=== PATIENT | male | born 1950 | race Caucasian/White ===

== ENCOUNTER 2016-06-01 19:23 | Emergency (ER) | payer MEDICARE, OTHER ==
[~2016-06-01] VITALS: Ht 175.3 cm; Wt 106.5 kg
[~2016-06-01 19:23] MED LIST: ASPI81TA82 PO; EFFE75CA PO; GABA400C5 PO; HYDR-3533 PO; IBUP-238 PO; LOSA50TA PO; OMEP20CA5 PO
[2016-06-01 19:25] VITALS: BP 145/86; PULSE 96; RESP 20; TEMP 98.6; O2SAT 98
--- NOTE | 2016-06-01 19:33 | PD ---
HPI Chief Complaint: swallowed piece of plastic Time Seen by Provider: 19:29 Travel History International Travel<30 days: No Contact w/Intl Traveler<30days: No Traveled to known affect area: No History of Present Illness HPI The patient is a 66-year-old male that at approximately 7 PM tonight accidentally swallowed what he thinks is a hard piece of plastic, like a bread closing device, accidentally. He was eating a sandwich at the time. Initially he had difficulty breathing but he has no trouble breathing now and he feels that he has this piece of plastic in his upper esophagus. He called the ambulance and they brought him here. PFSH Past Medical History Arthritis: No Asthma: No Autoimmune Disease: No Anxiety: Yes Depression: No Heart Rhythm Problems: No Cancer: Yes (SKIN CANCER REMOVED ) Cardiovascular Problems: Yes High Cholesterol: No Chemotherapy: No Chest Pain: No Congestive Heart Failure: No COPD: No Cerebrovascular Accident: No Diabetes: No Diminished Hearing: No Endocrine: No Gastrointestinal Disorders: No GERD: No Genitourinary: No Headaches: Yes Hiatal Hernia: No Hypertension: Yes Immune Disorder: No Implanted Vascular Access Dvce: Yes Kidney Stones: No Musculoskeletal: Yes Neurologic: Yes Psychiatric: No Reproductive: No Respiratory: No Integumentary: Yes Migraines: Yes Radiation Therapy: No Renal Failure: No Seizures: No Sickle Cell Disease: No Sleep Apnea: No Thyroid Disease: No Ulcer: No Past Surgical History Abdominal Surgery: Yes (APPENDECTOMY) AICD: No Appendectomy: Yes Arteriovenous Shunt: No Body Medical Devices: PINS IN NECK Cardiac Surgery: No Ear Surgery: No Endocrine Surgery: No Eye Surgery: Yes (LASIK SURGERY) Genitourinary Surgery: No Gynecologic Surgery: No Insulin Pump: No Joint Replacement: No Neurologic Surgery: Yes ( CERVICAL FUSION SURGERY) Oral Surgery: No Pacemaker: No Thoracic Surgery: No Other Surgery: Yes Social History Alcohol Use: Yes (SOCIALLY) Tobacco Use: No Substance Use: No Allergies-Medications (Allergen,Severity, Reaction): Coded Allergies: No Known Allergies (Verified , 06/01/16) Reported Meds & Prescriptions Reported Meds & Active Scripts Active Reported Effexor (Venlafaxine HCl) 75 Mg Tab 75 Mg PO Q12H Omeprazole 20 Mg Cap 20 Mg PO DAILY Losartan (Losartan Potassium) 50 Mg Tab 50 Mg PO DAILY Gabapentin 600 Mg Tab 600 Mg PO TID Aspirin 81 Mg Tabdr 81 Mg PO DAILY Review of Systems Except as stated in HPI: all other systems reviewed are Neg Physical Exam Narrative GENERAL: Well-nourished, alert and oriented, obese patient in minimal apparent distress with his esophageal discomfort. SKIN: Warm and dry. HEAD: Normocephalic. EYES: No scleral icterus. No injection or drainage. NECK: Supple, trachea midline. No JVD or lymphadenopathy. CARDIOVASCULAR: Regular rate and rhythm without murmurs, gallops, or rubs. RESPIRATORY: Breath sounds equal bilaterally. No accessory muscle use. GASTROINTESTINAL: Abdomen soft, non-tender, nondistended. The patient can swallow water without any problem. MUSCULOSKELETAL: No cyanosis, or edema. BACK: Nontender without obvious deformity. No CVA tenderness. Data Data Last Documented VS Vital Signs Date Time Temp Pulse Resp B/P Pulse Ox O2 Delivery O2 Flow Rate FiO2 06/01/16 22:04 78 18 120/78 97 06/01/16 19:39 Nasal Cannula 2 06/01/16 19:[address] Soft Tiss Neck W/O Iv Cont (06/01/16 20:45) MDM Medical Decision Making Medical Screen Exam Complete: Yes Emergency Medical Condition: Yes Medical Record Reviewed: Yes Interpretation(s) The CT scan of the neck/upper esophagus reveals no foreign body. Differential Diagnosis Foreign body esophagus, irritation of esophagus, foreign body tracheahighly unlikely Narrative Course After the CT scan showed no foreign body, I gave the patient bread water and he ate this extremely well. The patient appears not to have any foreign body in the esophagus, only an irritation of the esophagus. Diagnosis Primary Impression: Esophageal abrasion Additional Instructions: As we discussed, this irritation of the esophagus should go away in several days , if you have any problems follow up with gastroenterology. Med/Other Pt SpecificInfo: No Change to Meds Disposition: 01 DISCHARGE HOME Condition: Stable Joe Maria MD Jun 01, 2016 19:33 Condition: Stable Joe Maria MD Jun 01, 2016 19:33
[2016-06-01] MEDS ORDERED: VENL75TA PO (19:35)
[2016-06-01] MEDS ORDERED: OMEP20CA2 PO (19:35)
[2016-06-01] MEDS ORDERED: ASPI1TAB69 PO (19:35)
[2016-06-01] MEDS ORDERED: GABA600T PO (19:35)
[2016-06-01] MEDS ORDERED: LOSA50TA PO (19:35)
[2016-06-01 19:39] VITALS: BP 136/86; PULSE 83; RESP 18; O2SAT 97
[2016-06-01 20:45] VITALS: BP 117/77; PULSE 78; RESP 18; O2SAT 97
[2016-06-01 22:04] VITALS: BP 120/78; PULSE 78; RESP 18; O2SAT 97
--- NOTE | 2016-06-01 22:20 | RADHPO ---
EXAM DATE/TIME: 06/01/2016 21:38 [facility] COMPARISON: No previous studies available for comparison. INDICATIONS : Possible upper esophageal foreign body after eating. Difficulty breathing. RADIATION DOSE: 15.33 CTDIvol (mGy) MEDICAL HISTORY : Hypertension. SURGICAL HISTORY : Fusion, cervical. ENCOUNTER: Initial ACUITY: 1 day PAIN SCALE: 6/10 LOCATION: esophagus. TECHNIQUE: Volumetric scanning of the neck was performed. Using automated exposure control and adjustment of th e mA and/or kV according to patient size, radiation dose was kept as low as reasonably achievable to obtain optimal diagnostic quality images. FINDINGS: No radiopaque foreign body identified in the upper esophagus. Small bilateral thyroid nodules. No air way obstructing lesions or foreign bodies within the airway. No adenopathy. No acute bony abnormaliti es. Previous fusion C3-4 CONCLUSION: 1. No acute findings. Specifically no radiopaque foreign body within the upper airway or upper esopha omkar. Angel Gregory MD on June 01, 2016 at 22:15 Board Certified Radiologist. This report was verified electronically.
[2016-06-01 23:02] VITALS: BP 126/74; PULSE 76; RESP 18; O2SAT 97
== END 2016-06-01 23:03 | disposition home or self-care (01) ==
LOC: PHED 19:23
DX: S27.818A Other injury of esophagus (thoracic part), initial encounter (principal); I10 Essential (primary) hypertension
CPT/HCPCS: 70490